=== PATIENT | male | born 1990 | race Caucasian/White ===

== ENCOUNTER 2020-10-16 13:02 | Emergency (ER) | payer OTHER ==
[~2020-10-16] VITALS: Ht 185.4 cm; Wt 97.5 kg
[2020-10-16 13:11] VITALS: BP 126/68
--- NOTE | 2020-10-16 13:15 | NUR ---
30/M presents to ED with complaints of dental pain since July. Patient states he has been seen by dentist but they have been pushing his appointment 2 months from now. Pt states "all my wisdom teeth are growing at once and I can't stand the pain." Pt states he has taken abx with no improvement.
--- NOTE | 2020-10-16 13:26 | NUR ---
DR. SALAZAR IS EVALUATING PATIENT AT BEDSIDE.
[2020-10-16] MEDS ORDERED: KETOROLAC 60 MG/2 ML VIAL IM ONE (13:30)
--- NOTE | 2020-10-16 13:30 | NUR ---
30 Y/O M COMING IN FROM HOME WITH C/C WISDOM TOOTH PAIN. PT STATES CHRONIC PAIN SINCE 07/2020. PT STATES 06/13 TOOTH PAIN. PT STATES HE IS PRESCRIBED NORCO 3-325 AND RAN OUT OF MEDICATION YESTERDAY. PT STATES HE WAS AT WORK TODAY WHEN THE PAIN BECAME UNBEARABLE. PT WENT TO AN URGENT CARE AND WAS ADVISED TO VISIT THE ER FOR HIS PAIN. PT PLACED ONTO BLOOD PRESSURE/PULSE OX. VSS. EQUAL CHEST RISE AND FALL. LUNG SOUNDS CTA. BED LOCKED IN LOWEST POSITION, SIDE RAILS X 1. PMH/MEDS: REBEKA CALDERON
[2020-10-16 13:43] VITALS: BP 123/84
--- NOTE | 2020-10-16 13:43 | NUR ---
Patient discharged with v/s stable. Written and verbal after care instructions given and explained. Patient alert, oriented and verbalized understanding of instructions. Ambulatory with steady gait. All questions addressed prior to discharge. ID band removed. Patient advised to follow up with PMD. Rx of NORCO 3-325, CLINDAMYCIN, NAPROXEN given. Patient educated on indication of medication including possible reaction and side effects. Opportunity to ask questions provided and answered.
== END 2020-10-16 13:43 | disposition home or self-care (01) ==
LOC: MED 13:02
DX: K02.9 Dental caries, unspecified (principal)
CPT/HCPCS: 96372; 99283; J1885